=== PATIENT | male | born 1995 | race Caucasian/White ===

== ENCOUNTER 2025-03-12 12:52 | Emergency (ER) | payer OTHER, SELFPAY ==
[2025-03-12 13:07] VITALS: BMI 38.4
[2025-03-12 13:08] VITALS: BP 140/100
--- NOTE | 2025-03-12 13:42 | ED.GENMED ---
History of Present Illness
General
Chief Complaint: Musculo-Skeletal Complaint
Time Seen by Provider: 03/12/25 13:21
History of Present Illness
History of Present Illness:
TIME OF INITIAL ENCOUNTER:
HPI: Patient reportedly fell out of penitentiary bunk last night at 6 PM landing on the right upper extremity. The bunk was about 4-1/2 feet high. He states that he was watching a movie at the time and sort of lost his positioning and fell off the bed.
Shortly after that time, he has been having numbness to the right hand.
EXAM:
GENERAL: Well appearing in no distress
NEUROLOGIC: The patient has excellent proximal strength to all extremities, at the right hand, the patient has nearly absent sensation to the fingers of the right hand, he has decreased strength at the fingers of the right hand
PSYCHIATRIC: Appropriate mental status, normal insight and judgement
EXTREMITIES: There is tenderness to the volar aspect of the right forearm along with ecchymosis noted, cap refill is brisk, easily palpable radial pulse
SKIN: Heavily tattooed
NUMBER AND COMPLEXITY OF PROBLEMS ADDRESSED AT THE ENCOUNTER
� Chronic conditions affecting care: History of ADHD, anxiety/depression
� Acute Exacerbation and/or Progression of Chronic Illness: This is an acute problem
� Differential Diagnosis includes: Soft tissue injury, hematoma of the distal right forearm with compression of distal right upper extremity nerves
AMOUNT AND/OR COMPLEXITY OF DATA TO BE REVIEWED AND ANALYZED
� I performed an independent evaluation of and my interpretation is:
EKG:
CT:
X-rays: X-rays of the right forearm, right wrist, and right hand showed no acute abnormality
Laboratory Studies:
Other:
� Review of other/old records: I reviewed records, the patient was seen here in 2014 with a sprained ankle and in 2015 with mesenteric adenitis. There was also concern for distal right radius fracture in 2011.
� Clinical information was obtained by an independent historian: I spoke to corrections officers at bedside
� Prescriptions/Medications Considered but not given:
� Further testing considered but not performed:
RISK OF COMPLICATIONS AND/OR MORBIDITY OR MORTALITY OF PATIENT MANAGEMENT
� Social determinants of health affecting care: Currently staying at [facility]
� Discussion with other providers:
� Escalation of care including admission/observation vs risk of discharge considered: The patient presents from a fall from height with normal x-rays but ongoing paresthesias/sensory deficits to the right hand. His cap refill
and pulses are normal. Since he does have decreased function, we will have him follow-up with orthopedics. I suspect that the patient has decreased sensory function related to impingement upon the nerve from soft tissue swelling/hematoma at the
distal right forearm soft tissue. Placed in splint.
ANY OTHER UPDATES:
Past History
Past History
ED Past Medical History: None
ED Past Surgical History: None
Social History
Tobacco: Smoker
Alcohol: None
Drug: None
Personal: Single
Living: with family
Phy Exam
Physical Exam
Physical Exam:
See HPI
Course
Orders/Labs/Results
Orders:
Orders
03/12/25 13:05
CR Forearm - Right 2 View Urgent
Comment:
Reason For Exam: fx
CR Hand - Right 2 Views Urgent
Comment:
Reason For Exam: fx
CR Wrist - Right Min 3 Views Urgent
Comment:
Reason For Exam: possible fx
03/12/25 14:02
Splints/Slings/Crut- Treatment ONCE
Location: Right
Type of Splint: [place] Wrist
Vital Signs
Initial and Last Documented VS:
Initial Vital Signs
Temp Pulse Resp BP Pulse Ox
36.9 C 79 18 140/100 97
03/12/25 13:08 03/12/25 13:08 03/12/25 13:08 03/12/25 13:08 03/12/25 13:08
Last Documented Vital Signs
Temp Pulse Resp BP Pulse Ox
36.9 C 79 18 140/100 97
03/12/25 13:08 03/12/25 13:08 03/12/25 13:08 03/12/25 13:08 03/12/25 13:08
*Critical Care Note
Total Time (30-74mins, 75-104mins- exclusive of procedures): Not Applicable
ED Attending Note
-
Portions of this chart may have been created with voice recognition software.� Occasional wrong word or��sound alike� substitutions may have occurred due to the inherent limitations of voice recognition software.
Discharge Plan
Departure
Patient Disposition: Home (Routine Discharge)
Date of Disposition: 03/12/25
Time of Disposition: 13:59
Patient with high blood pressure during this ER visit?: Yes
Discharge Problem:
Contusion of soft tissue
Instructions: Hand Numbness, BLOOD PRESSURE, Contusion
Prescriptions:
No Action
No Current Medications
0
Referrals:
[facility] [Family Provider, General]
Yakov Tarango MD [Active, Orthopedics]
Activity Restrictions/Additional Instructions:
I feel that you are medically cleared for incarceration. The x-rays of the forearm, wrist, and hand showed no sign of fracture as read by radiologist. However given the paresthesias /poor sensation, I recommend you follow-up with orthopedics. I
have given you the contact information for Dr. Medrano his office for appointment. Use the splint for comfort. Try to keep the arm elevated is much as possible to help decrease the swelling. I also recommend using ice/cold compress to help
decrease swelling.
Interventions
Interventions:
*Risk Screen - Suicide Last Done: 03/12/25 13:08
*General Assessment Last Done: 03/12/25 13:08
*Neglect/Abuse Screening Last Done: 03/12/25 13:08
*ED- Fall Risk Assessment Last Done: 03/12/25 13:08
*ED COVID-19 Vaccine History Last Done: 03/12/25 13:08
ED-Musculoskeletal Assessment Last Done: 03/12/25 13:08
Discharge Date and Time
Print Language: DIVEHI
== END 2025-03-12 14:29 | disposition home or self-care (01) ==
LOC: EMR 12:52
PROVIDERS: EMERGENCY PHYSICIAN Emergency Medicine
DX: S40.021A Contusion of right upper arm, initial encounter (principal); W06.XXXA Fall from bed, initial encounter; F90.9 Attention-deficit hyperactivity disorder, unspecified type; F41.8 Other specified anxiety disorders; F17.200 Nicotine dependence, unspecified, uncomplicated
CPT/HCPCS: 99283; 73090; 73110; 73120